=== PATIENT | female | born 1955 | race Caucasian/White ===

== ENCOUNTER 2023-11-26 16:06 | Emergency (ER) | payer MEDICARE, MEDICAID ==
[~2023-11-26] VITALS: Ht 157.5 cm; Wt 86.2 kg
[~2023-11-26 16:06] MED LIST: AMIT50TA15 PO; AMLO5TAB16 PO; CELE-127 PO; CEPH250T PO; ESCI20TA39 PO; FAMO20TA8 PO; METO-384 PO; POTA-207 PO; TIZA-205 PO; TOPI-95 PO
[2023-11-26 16:10] VITALS: TEMP 98.6; O2SAT 97
[2023-11-26] MEDS ORDERED: ketorolac trometh inj. 60 MG/2 ML VIAL IM ONE (17:30)
[2023-11-26 17:45] VITALS: BP 163/98; PULSE 82; RESP 18
== END 2023-11-26 17:46 | disposition home or self-care (01) ==
LOC: ER 16:07
DX: S00.31XA Abrasion of nose, initial encounter (principal); W18.39XA Other fall on same level, initial encounter; Y93.89 Activity, other specified; Y92.89 Other specified places as the place of occurrence of the external cause; Y99.8 Other external cause status
CPT/HCPCS: 70450; 70486; 72125; 96372; 99285; J1885